=== PATIENT | female | born 1985 | race Two or more races ===

== ENCOUNTER 2023-08-12 18:12 | Emergency (ER) | payer OTHER ==
[~2023-08-12] VITALS: Ht 160 cm; Wt 71.8 kg
[2023-08-12] MEDS ORDERED: IBUP-45 PO (18:19)
[2023-08-12] MEDS ORDERED: IBUP-2853 PO (18:19)
[2023-08-12 18:22] VITALS: BP 114/72; PULSE 70; RESP 18; TEMP 97.8
== END 2023-08-12 23:17 | disposition left against medical advice (07) ==
LOC: EMS 18:13
DX: R51.9 Headache, unspecified (principal); Z53.21 Procedure and treatment not carried out due to patient leaving prior to being seen by health care provider
CPT/HCPCS: 99281; Z7502